=== PATIENT | male | born 1955 | race Caucasian/White ===

== ENCOUNTER → 2024-03-24 11:15 | Outpatient (REF) | payer BC, SELFPAY | LOC: HWRAD 11:15 | PROVIDERS: ATTENDING PHYSICIAN Nurse Practitioner Family | DX: M25.511 Pain in right shoulder (principal) | CPT/HCPCS: 73030 ==

== ENCOUNTER → 2024-07-17 17:02 | Outpatient (REF) | payer MEDICARE, SELFPAY | LOC: HWRAD 17:02 | PROVIDERS: ATTENDING PHYSICIAN Nurse Practitioner Family | DX: M54.2 Cervicalgia (principal) | CPT/HCPCS: 72050 ==

== ENCOUNTER → 2024-07-29 07:22 | Outpatient (REF) | payer MEDICARE, SELFPAY | LOC: MRI 3T 07:22 | PROVIDERS: ATTENDING PHYSICIAN Nurse Practitioner Family | DX: M25.511 Pain in right shoulder (principal) | CPT/HCPCS: 73221 ==